=== PATIENT | female | born 1965 | race Caucasian/White ===

== ENCOUNTER → 2024-06-26 | Outpatient (BNVA) | payer MEDICAID, SELFPAY | END | disposition home or self-care (01) | PROVIDERS: PCP Physician Assistant; Referring Provider Physician Assistant; Visit Provider Urology Female Pelvic Medicine and Reconstructive Surgery | DX: R39.9 Unspecified symptoms and signs involving the genitourinary system (principal); R15.9 Full incontinence of feces | CPT/HCPCS: 51798; 76857; 81003; 99212; G0463 ==

== ENCOUNTER → 2024-10-30 | Outpatient (BNVA) | payer MEDICAID, SELFPAY | END | disposition home or self-care (01) | PROVIDERS: PCP Physician Assistant; Referring Provider Physician Assistant; Visit Provider Urology | DX: N30.10 Interstitial cystitis (chronic) without hematuria (principal); N20.0 Calculus of kidney; N31.9 Neuromuscular dysfunction of bladder, unspecified; E78.5 Hyperlipidemia, unspecified; E66.9 Obesity, unspecified; Z68.28 Body mass index [BMI] 28.0-28.9, adult; N31.8 Other neuromuscular dysfunction of bladder; K31.84 Gastroparesis; M54.12 Radiculopathy, cervical region; K21.9 Gastro-esophageal reflux disease without esophagitis | CPT/HCPCS: 81003; 99212; G0463 ==

== ENCOUNTER → 2025-05-04 | Outpatient (BNVA) | payer MEDICAID, SELFPAY | END | disposition home or self-care (01) | PROVIDERS: PCP Physician Assistant; Referring Provider Physician Assistant; Visit Provider Urology | DX: N20.0 Calculus of kidney (principal); Q61.5 Medullary cystic kidney | CPT/HCPCS: 81003; 99212; G0463 ==

== ENCOUNTER → 2025-06-06 | Outpatient (CLI) | payer MEDICAID, SELFPAY ==
--- NOTE | 2025-06-06 14:00 | XR_ITS ---
Examination: CT abdomen and pelvis without contrast. Coronal 3-D reconstructions. Sagittal 2-D reconstructions. Date and time of exam: June 06, 2025, 1352 hours, comparison October 12, 2023 INDICATIONS: History right-sided flank pain hematuria 5 months, mild right hydronephrosis 8 mm calculus in the right renal pelvis on CT stone study October 12, 2023 CTDI: vol (mGy): 8.99 DLP: (mGycm): 558 Technique: Axial images of the abdomen have been obtained, 3 mm slice thickness Intravenous contrast material has not been administered. Low dose protocols were performed. One or more of the following dose reduction techniques were used; automated exposure control, adjustment of the mA and/or KV according to patient size, use of iterative reconstruction technique. Findings: 10 mm right lobe liver cyst Absent gallbladder No splenic lesion No extrahepatic biliary tract dilatation Fatty replacement throughout the pancreas Bilateral renal calculi, the largest on the left side 5 mm on the right side 5 mm Moderate right hydronephrosis 13 mm proximal right ureteral calculus No bowel obstruction No bladder mass or bladder calculi No pelvic mass IMPRESSION: Bilateral renal calculi Moderate right hydronephrosis 13 mm proximal right ureteral calculus
== END | disposition home or self-care (01) ==
PROVIDERS: Referring Provider Urology; Visit Provider Urology
DX: N20.0 Calculus of kidney (principal); N13.30 Unspecified hydronephrosis
CPT/HCPCS: 74176

== ENCOUNTER → 2025-07-13 | Outpatient (BNVA) | payer MEDICAID, SELFPAY ==
--- NOTE | 2025-07-18 19:50 | ESOP_ITS ---
RE: VANESA FLOYD : 1965 I called Mrs. Floyd with my [employer]. I called her how she was doing. Patient complains of pain, right flank. She has 1.6 cm stone in the right ureter with hydronephrosis. She has no fever, but she has nausea. I had seen her in my office. I told her it is a very big stone In the ureter. She needs to have a placement of percutaneous nephrostomy first. Patient did not entertain the idea first then she was in my office. She has been to emergency room in [facility] before. Yesterday I talked to her in great detail. I told her I do not have IR all the time, and if I do a procedure and if I am unable to pass a safety wire or pass a glidewire and unable to insert a stent then it becomes an emergency because she could get infected, could get septic, and very rarely it can lead to . For me to do this procedure I need backup of interventional radiologist who can place the percutaneous nephrostomy. Patient understood it well and has agreed to go to the [facility] emergency room had placement of percutaneous nephrostomy see urologist if available but interventional radiologist available all the time and they can insert a percutaneous nephrostomy then she can follow up with me in my office. DT: 14:40:59 TT: 19:48:00 Ref: [id number] - TID: [id number]
== END | disposition home or self-care (01) ==
PROVIDERS: PCP Physician Assistant; Referring Provider Physician Assistant; Visit Provider Urology
DX: N13.2 Hydronephrosis with renal and ureteral calculous obstruction (principal); Q61.5 Medullary cystic kidney; Z87.442 Personal history of urinary calculi
CPT/HCPCS: 81003; 99212; G0463